=== PATIENT | female | born 1990 | race Caucasian/White ===

== ENCOUNTER 2016-08-13 10:19 | Emergency (ER) | payer BC, OTHER ==
[2016-08-13 10:28] VITALS: BP 126/63; BMI 28.8
--- NOTE | 2016-08-13 10:42 | DR.GENAD ---
HPI - PCP Primary Care Physician: JAIMIE - Complaint/Symptoms Chief Complaint:: PT C/O COUGH, FEVER, AND RUNNY NOSE THAT STARTED 3 DAYS AGO. PT STATES SHE IS 15 WEEKS AND HAS NOT BEEN TAKING ANY MEDICATIONS. - Source History Provided: Patient - Mode of Arrival Mode of Arrival: Ambulatory - Timing Onset of Chief Complaint: 08/10/16 PMH - PMH Past Medical History: No Past Surgical History: Yes Past Surgical History Comment: SINUS SURGERY - Family History History of Family Medical Conditions: Yes Family Medical History: Diabetes Mellitus, Coronary Artery Disease, Hypertension - Social History Does any household member use tobacco: No Alcohol Use: None Do you use any recreational Drugs:: No Lives With: Family Lives Where: Home - infectious screening In the last 2 months have you had wt loss of >10#?: NO Have you had fever, night sweats or hemotysis?: No Have you traveled outside the country in the last 6 months?: No Isolation: Standard ROS - Review of Systems Eyes: No Symptoms Reported ENTM: No Symptoms Reported Respiratoy: Wheezing (inspiratory) Cardiovascular: No Symptoms Reported Gastrointestinal/Abdominal: No Symptoms Reported Genitourinary: No Symptoms Reported Neurological: No Symptoms Reported Musculoskeletal: No Symptoms Reported Integumentary: No Symptoms Reported Hematologic/Lymphatic: No Symptoms Reported Endocrine: No Symptoms Reported Psychiatric: No Symptoms Reported All Other Systems: Reviewed and Negative PE - Vital Signs Vitals: Temperature 98.2 F Pulse Rate 95 Respiratory Rate 20 Blood Pressure [Left Arm] 105/67 Blood Pressure 126/63 O2 Sat by Pulse Oximetry 97 - General Limitations: No Limitations General Appearance: Alert, In No Apparent Distress - Head Head Exam: Normal Inspection, Atraumatic - Eyes Eye exam: Normal Appearance, PERRL, EOMI - ENT ENT Exam: TM's Normal Bilaterally External Ear Exam: Normal External Inspection TM/Canal Exam: Bilateral Normal Nose Exam: Other (congestion right) Mouth Exam: Normal Inspection Throat Exam: Normal Inspection - Neck Neck Exam: Normal Inspection - Chest Chest Inspection: Normal Inspection - Respiratory Respiratory Exam: Normal Lung Sounds Bilat Respiratory Exam: Left Wheezing (inspiratory) - Cardiovascular Cardiovascular Exam: Regular Rate - Abdominal Exam Abdominal Exam: Normal Inspection Abdominal Tenderness: negative: RUQ, RLQ, LUQ, LLQ, Epigastrium, Suprapubic, Diffuse, Mild, Moderate, Severe, Other - Extremities Extremities Exam: Normal Inspection - Back Back Exam: Normal Inspection - Neurologic Neurological Exam: Alert, Oriented X3, CN II-XII Intact - Psychiatric Psychiatric Exam: Normal Affect - Skin Skin Exam: Warm, Dry, Intact ROR - Labs Reviewed Laboratory Results Reviewed?: Yes (strep positive; influenza pending) Laboratory: Streptococcus Screen Positive (NEGATIVE) A 08/13/16 11:08 - Diagnosis Discharge Problem: Strep sore throat - Discharge Plan Condition: Stable - Follow ups/Referrals Follow ups/Referrals: KARLEE ETIENNE [Primary Care Provider] - 3 days - Instructions
== END 2016-08-13 12:16 | disposition home or self-care (01) ==
LOC: ER 10:31
DX: J02.0 Streptococcal pharyngitis (principal)
CPT/HCPCS: 87502; 87503; 87880; 99282

== ENCOUNTER 2017-01-18 19:19 | Inpatient (IN) | payer OTHER ==
[2017-01-18 19:24] VITALS: BMI 27.3
[2017-01-18 19:36] LABS: AMNISURE ROM TEST THERE IS A RUPTURE (NO RUPTURE)
[2017-01-18] MEDS ORDERED: D5 1/2 NS 1000 ML 1,000 ML IV SCH ×2 (20:00→21:00)
[2017-01-18] MEDS ORDERED: PHENERGAN INJ 25 MG IV PRN (20:02)
[2017-01-18] MEDS ORDERED: REGLAN INJ 10 MG VIAL IVP PRN (20:02)
[2017-01-18] MEDS ORDERED: D5LR 1L W PITOCIN 10 UNITS/L 10 UNITS/1,000 ML BAG IV PRN (20:02)
[2017-01-18] MEDS ORDERED: NUBAIN INJ 200 MG VIAL MULTIDOSE IVP PRN (20:02)
[2017-01-18] MEDS ORDERED: DILAUDID INJ IVP PRN (20:02)
[2017-01-18 20:04] LABS: BASOPHILS % (AUTO) 0.3 % (0.2-1.0); EOSINOPHILS # (AUTO) 0.3 x10^3/uL (0.0-0.2); EOSINOPHILS % (AUTO) 1.9 % (0.9-2.9); HEMATOCRIT 33.4 % (36.0-47.0); HEMOGLOBIN 11.2 g/dL (12.0-16.0); LYMPHOCYTES # (AUTO) 3.2 X10^3/uL (1.3-2.9); LYMPHOCYTES % (AUTO) 19.9 % (21.0-51.0); MEAN CORPUSCULAR HGB CONC 33.6 g/dL (33.0-35.0); MEAN CORPUSCULAR VOLUME 80.5 fL (80.0-100.0); MEAN PLATELET VOLUME 9.5 fL (7.4-11.0); MONOCYTES # (AUTO) 0.9 x10^3/uL (0.3-0.8); MONOCYTES % (AUTO) 5.8 % (0.0-13.0); NEUTROPHILS # (AUTO) 11.5 x10^3/uL (2.2-4.8); NEUTROPHILS % (AUTO) 72.1 % (42.0-75.0); PLATELET COUNT 301 X10^3/uL (150.0-450.0); RED BLOOD COUNT 4.15 X10^6/uL (3.5-5.4); RED CELL DISTRIBUTION WIDTH 13.7 % (11.6-16.5)
[2017-01-18 20:12] LABS: ALANINE AMINOTRANSFERASE 11 Units/L (12-78); ALBUMIN 2.1 g/dL (3.4-5.0); ALKALINE PHOSPHATASE 182 Units/L (46-116); ASPARTATE AMINO TRANSFERASE 13 Units/L (15-37); BLOOD UREA NITROGEN 2 mg/dL (7-18); CALCIUM 8.9 mg/dL (8.5-10.1); CARBON DIOXIDE 24.5 mmol/L (21-32); CHLORIDE 104 mmol/L (98-107); COR CA(FOR HYPOALB) 10.4 mg/dL (8.5-10.1); CREATININE 0.55 mg/dL (0.55-1.02); SODIUM 139 mmol/L (136-145); TOTAL PROTEIN 6.5 g/dL (6.4-8.2); eGFR BLACK RACES > 60 (>60); eGFR NON BLACK RACES > 60 (>60)
[2017-01-18] MEDS ORDERED: LR 1000 ML IV 1,000 ML IV ONE ×2 (20:14→20:44)
[2017-01-18] MEDS ORDERED: PITOCIN ONE (20:15)
[2017-01-18] MEDS ORDERED: D5 1/2 NS 1L W PITOCIN 20 UNITS/L 20 UNITS/1,000 ML BAG IV ONE (20:15)
[2017-01-18] MEDS ORDERED: D5LR 1L W PITOCIN 10 UNITS/L 10 UNITS/1,000 ML BAG IV ONE (20:15)
[2017-01-18] MEDS ORDERED: NAROPIN EPIDURAL 0.2% + FENTANYL 90MCG 60 ML EPI ONE (20:15)
[2017-01-18] MEDS ORDERED: D5 1/2 NS 1000 ML 1,000 ML IV ONE (20:18)
[2017-01-18] MEDS ORDERED: XYLOCAINE 1 % (PLAIN) ONE (20:42)
[2017-01-18] MEDS ORDERED: NAROPIN EPIDURAL 0.2% + FENTANYL 90MCG EPI SCH (20:44)
[2017-01-18 22:50] LABS: BILIRUBIN,URINE NEGATIVE (NEGATIVE); BLOOD/HEMOGLOBIN,URINE NEGATIVE (NEGATIVE); GLUCOSE, URINE NEGATIVE (NEGATIVE); KETONES,URINE NEGATIVE (NEGATIVE); LEUKOCYTE ESTERASE ,URINE NEGATIVE (NEGATIVE); NITRITES,URINE NEGATIVE (NEGATIVE); PROTEIN,URINE NEGATIVE (NEGATIVE); UROBILINOGEN,URINE NORMAL (NORMAL)
[2017-01-18 22:56] LABS: APPEARANCE,URINE CLEAR (CLEAR); BACTERIA,URINE 1+ /HPF (NEGATIVE); COLOR,URINE YELLOW (YELLOW); RBC,URINE NONE SEEN /HPF (NEGATIVE); SQUAMOUS EPITHELIAL CELL,UR RARE /HPF (NEGATIVE)
[2017-01-19] MEDS ORDERED: NAROPIN EPIDURAL 0.2% + FENTANYL 90MCG 60 ML EPI ONE (00:24)
[2017-01-19] MEDS ORDERED: D5 1/2 NS 1000 ML 1,000 ML IV SCH (04:00)
[2017-01-19] MEDS: PITOCIN IVP ONE ×2 (05:19→05:59)
[2017-01-19] MEDS ORDERED: MOTRIN TAB 800 MG PO PRN ×3 (05:31→17:20)
[2017-01-19] MEDS ORDERED: PHENERGAN INJ 25 MG IV PRN ×3 (05:31→17:20)
--- NOTE | 2017-01-19 05:31 | DR.OB ---
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 Head delivered over intact perineum. No nuchal cord. Nose and mouth bulb suctioned. Body delivered over intact perineum. Cord clamped x 2 and cut. Infant handed to attendant. Cord sent for gases. Placenta delivered spontaneously / intact / 3 vessel cord. No CVX / vaginal / perineal tears requiring repair. Viable female delivered easily, VTX/OA , wt=6'11" and 9/9, stable to NBN. Mother stable to RR. [id number].
[2017-01-19] MEDS ORDERED: D5 1/2 NS 1000 ML 1,000 ML with PITOCIN 20 UNITS IV SCH ×4 (06:00→14:00)
[2017-01-19] MEDS ORDERED: AMBIEN PO PRN ×2 (07:42→17:20)
[2017-01-19] MEDS ORDERED: DERMOPLAST SPRAY TOP PRN ×2 (07:42→17:20)
[2017-01-19] MEDS ORDERED: ADACEL TDaP IM ONE (07:42)
[2017-01-19] MEDS ORDERED: MILK OF MAGNESIA PO PRN ×2 (07:42→17:20)
[2017-01-19] MEDS ORDERED: ZANTAC PO SCH (09:00)
[2017-01-19] MEDS ORDERED: PRENATAL PLUS PO SCH (09:00)
[2017-01-19] MEDS ORDERED: LR 1000 ML IV 1,000 ML IV ONE (15:53)
[2017-01-19] MEDS ORDERED: ANCEF VIAL 1 GM ONE (15:53)
[2017-01-19] MEDS ORDERED: NS 50 ML IV + SPIKE MINIBAG* 50 ML IV ONE (15:53)
[2017-01-19] MEDS ORDERED: XYLOCAINE 2% and EPINEPHRINE 1:100,000 ONE (15:58)
[2017-01-19] MEDS ORDERED: NS IRRIGATION 1000 ML 1,000 ML IR ONE (16:25)
[2017-01-19] MEDS ORDERED: BENADRYL INJ 50 MG VIAL IVP PRN (16:59)
[2017-01-19] MEDS ORDERED: PHENERGAN INJ 25 MG IVP PRN (16:59)
[2017-01-19] MEDS ORDERED: DILAUDID INJ IVP PRN (16:59)
[2017-01-19] MEDS ORDERED: ZOFRAN INJ 4 MG VIAL IVP PRN (16:59)
[2017-01-19] MEDS ORDERED: CHLORASEPTIC SPRAY MT PRN ×3 (17:17→17:20)
[2017-01-19] MEDS ORDERED: MYLICON TAB 80 MG CHEW PO PRN (17:20)
[2017-01-19] MEDS: PERCOCET TAB 5/325 MG PO PRN ×2 (18:38→22:33)
[2017-01-19] MEDS: ZANTAC PO SCH (21:51)
[2017-01-19] MEDS: D5 1/2 NS 1000 ML 1,000 ML with PITOCIN 20 UNITS IV SCH ×2 (21:56)
[2017-01-20] MEDS: PERCOCET TAB 5/325 MG PO PRN ×2 (02:56→06:52)
[2017-01-20 04:45] LABS: HEMATOCRIT 32.9 % (36.0-47.0); HEMOGLOBIN 10.9 g/dL (12.0-16.0)
[2017-01-20] MEDS: D5 1/2 NS 1000 ML 1,000 ML with PITOCIN 20 UNITS IV SCH ×2 (06:26)
[2017-01-20] MEDS: ZANTAC PO SCH (08:47)
[2017-01-20] MEDS ORDERED: PRENATAL PLUS PO SCH (09:00)
[2017-01-20 09:31] VITALS: BP 106/56
[2017-01-20] MEDS ORDERED: SUPRANE IN ONE (15:56)
[2017-01-20] MEDS ORDERED: XYLOCAINE 1 % (PLAIN) ONE (15:56)
[2017-01-20] MEDS ORDERED: QUELICIN (OR ANECTINE) ONE (15:56)
[2017-01-20] MEDS ORDERED: DIPRIVAN VIAL ONE (15:56)
== END 2017-01-20 11:21 | disposition home or self-care (01) | DRG 767 ==
LOC: ER 19:25 → LD 20:00 → MED/SURG 01-19 06:25
PROVIDERS: ADMIT Specialist; ATTEND Specialist
PROC: 10E0XZZ Delivery of Products of Conception, External Approach (ICD-10-PCS; principal; 2017-01-18)
PROC: 0UB70ZZ Excision of Bilateral Fallopian Tubes, Open Approach (ICD-10-PCS; 2017-01-18)
DX: O24.429 Gestational diabetes mellitus in childbirth, unspecified control (principal); Z37.0 Single live birth; Z3A.37 37 weeks gestation of pregnancy; Z14.1 Cystic fibrosis carrier
CPT/HCPCS: 09167; 36415; 59409; 80053; 80307; 81001; 84112; 85014; 85018; 85025; 86592; 86850; 86900; 86901; 96365; 99284; A4216; A4222; S0197; G0434; J0330; J0690; J2001; J2590; J3490; J7042; J7120

== ENCOUNTER 2017-05-28 13:32 | Emergency (ER) | payer OTHER ==
[2017-05-28 13:37] VITALS: BP 146/85; BMI 24.3
--- NOTE | 2017-05-28 14:12 | DR.GENAD ---
HPI - PCP Primary Care Physician: NFD - HPI Comment HPI Comment: HISTORY BELOW. ALSO SORES ON LIPS AND IN MOUTH. NO FEVER. GENERALIZE PRURITUS. - Complaint/Symptoms Chief Complaint Doctors Comments: EXPOSURE TO SCABIES. Chief Complaint:: PATIENT THINKS SHE MAY HAVE SCABIES OR MITES. 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 - Family History History of Family Medical Conditions: Yes Family Medical History: Cancer, Coronary Artery Disease, Hypertension - Social History Does patient currently use any type of tobacco product: Yes Have you used tobacco products in the last 12 months: Yes Type of Tobacco Use: Cigarettes Does any household member use tobacco: No Alcohol Use: None Do you use any recreational Drugs:: No Lives With: Family Lives Where: Home - infectious screening In the last 2 months have you had wt loss of >10#?: NO Have you had fever, night sweats or hemotysis?: No Have you traveled outside the country in the last 6 months?: No Isolation: Standard ROS - Review of Systems Constitutional: No Symptoms Reported Eyes: No Symptoms Reported ENTM: Mouth Pain (ULCERS LIPS AND MOUTH.) Respiratoy: No Symptoms Reported Cardiovascular: No Symptoms Reported Gastrointestinal/Abdominal: No Symptoms Reported Genitourinary: No Symptoms Reported Neurological: No Symptoms Reported Musculoskeletal: No Symptoms Reported Integumentary: Itching (GENERALIZE.), Other (ULSERS LIPS AND MOUTH.) Hematologic/Lymphatic: Blood Clots Endocrine: No Symptoms Reported All Other Systems: Reviewed and Negative PE - Vital Signs Vitals: Temperature 96.6 F Pulse Rate 104 Respiratory Rate 20 Blood Pressure [Left Arm] 106/56 Blood Pressure 146/85 O2 Sat by Pulse Oximetry 98 - General Limitations: No Limitations General Appearance: Alert - Head Head Exam: Normal Inspection - Eyes Eye exam: Normal Appearance - ENT ENT Exam: Normal External Ear Exam External Ear Exam: Normal External Inspection TM/Canal Exam: Bilateral Normal Nose Exam: Normal Nose Exam Mouth Exam: Other (ULCERS ON INNER MOUTH.). negative: Lip Swelling (ULCERS ON LIPS) Throat Exam: Normal Inspection - Neck Neck Exam: Trachea Midline - Chest Chest Inspection: Symmetric Chest Wall Rise - Respiratory Respiratory Exam: Normal Lung Sounds Bilat Respiratory Exam: Bilateral Clear to Auscultation - Cardiovascular Cardiovascular Exam: Regular Rate, Normal Rhythm, Normal Heart Sounds - Abdominal Exam Abdominal Exam: Normal Inspection - Extremities Extremities Exam: Normal Inspection - Back Back Exam: Normal Inspection - Neurologic Neurological Exam: Alert, Oriented X3 - Psychiatric Psychiatric Exam: Normal Affect, Normal Mood - Skin Skin Exam: Intact MDM - Differential Diagnosis Differential Diagnosis: SCABIES, PRURITUA, MOUTH ULCERS. Course - Treatment Treatment: SEE ORDERS. - Education/Counseling Education/Counseling: Patient, Education Educated On: Diagnosis, Needs for Follow Up - Diagnosis Discharge Problem: Scabies exposure, Pruritus - Discharge Plan Disposition: HOME, SELF-CARE Condition: Stable Prescriptions: Cephalexin [KEFLEX CAP 500 MG *] 500 mg PO TID #30 cap Hydroxyzine Pamoate [Vistaril] 25 mg PO TID PRN #15 cap PRN Reason: Permethrin [Elimite Topical Cream] 1 applic EXT ONCE #1 tube - Follow ups/Referrals Follow ups/Referrals: NFD,None [Primary Care Provider] - 3 days PAMELA MAYES [STAFF PHYSICIAN] - 3 days - Instructions Instructions: Stomatitis, [id number], Scabies, Adult Additional Instructions: RETURN TO ED IF WORSE.
== END 2017-05-28 14:38 | disposition home or self-care (01) ==
LOC: ER 13:39
DX: B86 Scabies (principal); L29.9 Pruritus, unspecified
CPT/HCPCS: 99281; 99282